=== PATIENT | male | born 1990 | race Caucasian/White ===

== ENCOUNTER 2016-09-13 10:21 | Emergency (ER) | payer MEDICAID ==
[2016-09-13 10:39] VITALS: BP 161/100
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
== END 2016-09-13 16:48 | disposition home or self-care (01) ==
LOC: JP.ED 10:21
DX: F32.9 Major depressive disorder, single episode, unspecified (principal); F41.0 Panic disorder [episodic paroxysmal anxiety]; Z79.899 Other long term (current) drug therapy; Z88.8 Allergy status to other drugs, medicaments and biological substances
CPT/HCPCS: 36415; 80053; 80305; 81001; 85025; 99285; G0480

== ENCOUNTER 2017-09-27 15:20 | Emergency (ER) | payer MEDICAID ==
[2017-09-27 15:37] VITALS: BP 137/87
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
[2017-09-27] MEDS ORDERED: Ketorolac 60 MG/2 ML SDV IM ONE (17:41)
== END 2017-09-27 18:46 | disposition home or self-care (01) ==
LOC: JP.ED 15:20
DX: K60.2 Anal fissure, unspecified (principal); Z88.8 Allergy status to other drugs, medicaments and biological substances; Z79.899 Other long term (current) drug therapy
CPT/HCPCS: 96372; 99283; J1885

== ENCOUNTER 2019-08-24 18:32 | Emergency (ER) | payer MEDICAID ==
[2019-08-24 18:56] VITALS: BP 149/85; PULSE 102
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
[2019-08-24] MEDS ORDERED: LORazepam 0.5 MG Tab PO ONE (22:41)
== END 2019-08-24 23:19 | disposition other institution (70) ==
LOC: JP.ED 18:32
DX: F33.2 Major depressive disorder, recurrent severe without psychotic features (principal); F41.9 Anxiety disorder, unspecified; Z79.899 Other long term (current) drug therapy; Z88.8 Allergy status to other drugs, medicaments and biological substances; Z88.2 Allergy status to sulfonamides
CPT/HCPCS: 36415; 80048; 80305; 80307; 81001; 85027; 99285; A9270

== ENCOUNTER 2020-06-01 13:20 | Emergency (ER) | payer MEDICAID ==
[2020-06-01 13:41] VITALS: BP 148/89; PULSE 108
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
[2020-06-01] MEDS ORDERED: OXcarbazepine 300 MG Tab PO ONE (19:25)
[2020-06-01] MEDS ORDERED: risperiDONE 0.5 MG Tab PO ONE (19:26)
[2020-06-01] MEDS ORDERED: risperiDONE 0.25 MG Tab ONE (19:52)
== END 2020-06-01 20:03 | disposition home or self-care (01) ==
LOC: JP.ED 13:20
DX: F33.2 Major depressive disorder, recurrent severe without psychotic features (principal); Z88.2 Allergy status to sulfonamides; Z88.1 Allergy status to other antibiotic agents; Z88.8 Allergy status to other drugs, medicaments and biological substances; Z79.899 Other long term (current) drug therapy; Z20.822 Contact with and (suspected) exposure to COVID-19
CPT/HCPCS: 36415; 80053; 80305-QW; 80307; 81001; 85025; 99284; A9270-GY; U0002

== ENCOUNTER 2020-11-09 21:36 | Emergency (ER) | payer MEDICAID ==
[2020-11-09 21:41] VITALS: BP 130/85; PULSE 105
[2020-11-09] MEDS ORDERED: Ketorolac 60 MG/2 ML SDV IM ONE (22:02)
[2020-11-09] MEDS ORDERED: LORazepam 2 MG/ML SDV IM ONE (22:02)
[2020-11-09] MEDS ORDERED: Lidocaine 1% with EPINEPHrine 1:100,000 50 ML MDV SUBCUT STA (22:03)
[2020-11-09] MEDS ORDERED: Bacitracin Oint 1 GM U/D Packet TOP ONE (22:03)
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
[2020-11-09] MEDS ORDERED: Diphtheria,Pertussis(Acell),Tetanus Vaccine 0.5 ML Syringe IM ONE (22:16)
[2020-11-09] MEDS ORDERED: Flumazenil 0.1 MG/ML 5 ML MDV IVPUSH STA (23:30)
== END 2020-11-10 00:01 | disposition home or self-care (01) ==
LOC: JP.ED 21:36
DX: S61.213A Laceration without foreign body of left middle finger without damage to nail, initial encounter (principal); S51.011A Laceration without foreign body of right elbow, initial encounter; Z87.891 Personal history of nicotine dependence; Z88.6 Allergy status to analgesic agent; Z88.1 Allergy status to other antibiotic agents; Z88.8 Allergy status to other drugs, medicaments and biological substances; Z23 Encounter for immunization; Y04.0XXA Assault by unarmed brawl or fight, initial encounter
CPT/HCPCS: 12002; 90471; 90715; 96372; 96374; 99283; J1885; J2060; J3490

== ENCOUNTER 2020-11-10 00:37 | Emergency (ER) | payer MEDICAID ==
[2020-11-10] MEDS ORDERED: LORazepam 1 MG Tab PO ONE (01:37)
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
[2020-11-10 03:50] VITALS: BP 154/76; PULSE 100
== END 2020-11-10 08:47 | disposition home or self-care (01) ==
LOC: JP.ED 00:37
DX: F91.1 Conduct disorder, childhood-onset type (principal); Z88.1 Allergy status to other antibiotic agents; Z88.8 Allergy status to other drugs, medicaments and biological substances; Z88.5 Allergy status to narcotic agent
CPT/HCPCS: 99283; 99284; A9270

== ENCOUNTER 2020-12-19 15:19 | Emergency (ER) | payer MEDICAID ==
[2020-12-19] MEDS ORDERED: LORazepam 1 MG Tab PO ONE (15:54)
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
[2020-12-19 17:00] VITALS: BP 110/71; PULSE 123
== END 2020-12-19 17:04 | disposition home or self-care (01) ==
LOC: JP.ED 15:19
DX: F41.1 Generalized anxiety disorder (principal); Z88.1 Allergy status to other antibiotic agents; Z88.5 Allergy status to narcotic agent
CPT/HCPCS: 99283; A9270

== ENCOUNTER 2020-12-20 11:53 | Emergency (ER) | payer MEDICAID ==
[2020-12-20 12:32] VITALS: BP 112/74; PULSE 141
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
== END 2020-12-20 14:11 | disposition home or self-care (01) ==
LOC: JP.ED 11:53
DX: F33.2 Major depressive disorder, recurrent severe without psychotic features (principal); F41.0 Panic disorder [episodic paroxysmal anxiety]; F84.5 Asperger's syndrome; Z88.1 Allergy status to other antibiotic agents; Z88.8 Allergy status to other drugs, medicaments and biological substances
CPT/HCPCS: 99284

== ENCOUNTER 2020-12-21 19:30 | Emergency (ER) | payer MEDICAID ==
[2020-12-21 20:43] VITALS: BP 125/85; PULSE 114
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
== END 2020-12-22 00:49 | disposition home or self-care (01) ==
LOC: JP.ED 19:30
DX: F41.1 Generalized anxiety disorder (principal); F32.9 Major depressive disorder, single episode, unspecified; F84.5 Asperger's syndrome; Z88.8 Allergy status to other drugs, medicaments and biological substances; Z88.2 Allergy status to sulfonamides; Z79.899 Other long term (current) drug therapy
CPT/HCPCS: 99283

== ENCOUNTER 2020-12-22 09:00 | Emergency (ER) | payer MEDICAID ==
[2020-12-22 09:13] VITALS: BP 119/88; PULSE 119
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
== END 2020-12-22 16:16 | disposition home or self-care (01) ==
LOC: JP.ED 09:00
DX: F33.2 Major depressive disorder, recurrent severe without psychotic features (principal); F19.10 Other psychoactive substance abuse, uncomplicated; Z59.0 Homelessness; Z88.2 Allergy status to sulfonamides; Z88.8 Allergy status to other drugs, medicaments and biological substances; Z79.899 Other long term (current) drug therapy
CPT/HCPCS: 36415; 80053; 80305-QW; 80307; 85025; 99284

== ENCOUNTER 2021-04-11 16:37 | Emergency (ER) | payer MEDICAID ==
[2021-04-11] MEDS ORDERED: cloNIDine 0.1 MG Tab PO PRN (18:35)
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
[2021-04-11] MEDS ORDERED: hydrOXYzine HCl 25 MG Tab PO SCH (23:33)
[2021-04-11] MEDS ORDERED: risperiDONE 1 MG Tab PO SCH (23:34)
[2021-04-11] MEDS ORDERED: risperiDONE 1 MG Tab ONE (23:35)
[2021-04-11] MEDS ORDERED: hydrOXYzine HCl 25 MG Tab ONE (23:37)
[2021-04-12] MEDS ORDERED: hydrOXYzine HCl 25 MG Tab PO SCH (06:00)
[2021-04-12] MEDS ORDERED: DULoxetine 30 MG Cap PO SCH (09:00)
[2021-04-12 09:48] VITALS: BP 114/83; PULSE 88
[2021-04-12] MEDS ORDERED: risperiDONE 1 MG Tab PO SCH (21:00)
== END 2021-04-12 10:52 | disposition home or self-care (01) ==
LOC: JP.ED 16:37
DX: F33.2 Major depressive disorder, recurrent severe without psychotic features (principal); F41.9 Anxiety disorder, unspecified; F10.20 Alcohol dependence, uncomplicated; F15.10 Other stimulant abuse, uncomplicated; F84.5 Asperger's syndrome; Y90.0 Blood alcohol level of less than 20 mg/100 ml; Z77.22 Contact with and (suspected) exposure to environmental tobacco smoke (acute) (chronic); Z88.8 Allergy status to other drugs, medicaments and biological substances; Z88.2 Allergy status to sulfonamides; Z79.899 Other long term (current) drug therapy; Z20.822 Contact with and (suspected) exposure to COVID-19
CPT/HCPCS: 36415; 80053; 80305; 80307; 83735; 84439; 85025; 87635; 99284; A9270; U0002

== ENCOUNTER 2023-08-06 14:21 | Emergency (ER) | payer MEDICAID ==
[2023-08-06 16:39] VITALS: BP 145/97; PULSE 74
== END 2023-08-06 17:57 | disposition home or self-care (01) ==
LOC: JP.ED 14:21
DX: F41.9 Anxiety disorder, unspecified (principal); F33.2 Major depressive disorder, recurrent severe without psychotic features; K21.9 Gastro-esophageal reflux disease without esophagitis; Z88.8 Allergy status to other drugs, medicaments and biological substances; Z88.2 Allergy status to sulfonamides; Z86.19 Personal history of other infectious and parasitic diseases; Z87.891 Personal history of nicotine dependence; Z79.899 Other long term (current) drug therapy
CPT/HCPCS: 99283

== ENCOUNTER 2023-08-06 18:18 | Emergency (ER) | payer MEDICAID ==
[2023-08-06 22:46] LABS: AMPHETAMINES SCREEN, URINE NEGATIVE (NEGATIVE); BARBITURATE SCREEN,URINE NEGATIVE (NEGATIVE); BENZODIAZEPINES SCREEN,URINE NEGATIVE (NEGATIVE); METHADONE SCREEN, URINE NEGATIVE (NEGATIVE); METHAMPHETAMINES SCREEN, URINE NEGATIVE (NEGATIVE); OXYCODONE SCREEN,URINE NEGATIVE (NEGATIVE); PROPOXYPHENE SCREEN,URINE NEGATIVE (NEGATIVE); THC SCREEN,URINE 50 NG/ML PRESUMPTIVE POSITIVE (NEGATIVE)
[2023-08-06 23:01] LABS: BASOPHILS PERCENT AUTO 0.2 % (0.1-1.3); EOSINOPHILS ABSOLUTE AUTO 0.06 K/uL (0.00-0.40); EOSINOPHILS PERCENT AUTO 0.6 % (0.0-5.4); HEMOGLOBIN 14.4 g/dL (12.9-16.9); IMMATURE GRAN ABSOLUTE AUTO 0.05 K/uL (0.00-0.23); IMMATURE GRAN PERCENT AUTO 0.5 % (0.0-0.7); LYMPHOCYTES PERCENT AUTO 21.1 % (11.4-47.7); MEAN CORPUSCULAR HEMOGLOBIN 30.4 pg (31.6-35.5); MEAN CORPUSCULAR HGB CONC 35.1 g/dL (31.6-35.5); MEAN CORPUSCULAR VOLUME 86.5 fL (81.4-99.0); MONOCYTES ABSOLUTE AUTO 0.68 K/uL (0.20-0.90); MONOCYTES PERCENT AUTO 7.2 % (3.3-12.6); NEUTROPHILS ABSOLUTE AUTO 6.65 K/uL (1.0-7.6); NEUTROPHILS PERCENT AUTO 70.4 % (40.0-78.1); PLATELET COUNT,PLT 352 K/uL (130-375); RED BLOOD CELL COUNT 4.74 M/uL (4.14-5.76); WHITE BLOOD CELL COUNT,WBC 9.5 K/uL (3.2-11.0)
[2023-08-06 23:02] LABS: BASOPHILS ABSOLUTE AUTO 0.02 K/uL (0.00-0.10)
[2023-08-06 23:22] LABS: A/G RATIO 1.1 (1.2-2.2); ALANINE AMINOTRANSFERASE,ALT 50 U/L (12-78); ALBUMIN 4.2 g/dL (3.4-5.0); ALKALINE PHOSPHATASE 101 U/L (46-116); ANION GAP 12.6 mmol/L (5.0-14.0); ASPARTATE AMNIOTRANSFERASE,AST 22 U/L (15-37); BILIRUBIN TOTAL 0.3 mg/dL (0.2-1.0); BLOOD UREA NITROGEN,BUN 11 mg/dL (7-18); CALCIUM 9.3 mg/dL (8.5-10.1); CARBON DIOXIDE,CO2 25 mmol/L (21-32); CHLORIDE,CL 103 mmol/L (100-108); CREATININE 1.1 mg/dL (0.8-1.3); EST CRCL DRUG DOSING (CG) 109.96 mL/min; ESTIMATED GFR 92 mL/min (>60); GLUCOSE RANDOM 93 mg/dL (74-106); POTASSIUM,K 3.7 mmol/L (3.6-5.2); PROTEIN TOTAL,TP 8.1 g/dL (6.4-8.2); SODIUM,NA 141 mmol/L (140-148)
[2023-08-06] MEDS: QUEtiapine 25 MG Tab PO ONE (23:51)
[2023-08-06] MEDS: LORazepam 1 MG Tab PO ONE (23:51)
[2023-08-06] MEDS: Gabapentin 100 MG Cap PO ONE (23:51)
[2023-08-07 06:00] VITALS: BP 126/78; PULSE 70
== END 2023-08-07 07:40 ==
LOC: JP.ED 18:18
DX: F43.23 Adjustment disorder with mixed anxiety and depressed mood (principal); F41.9 Anxiety disorder, unspecified; F33.2 Major depressive disorder, recurrent severe without psychotic features; K21.9 Gastro-esophageal reflux disease without esophagitis; Z88.2 Allergy status to sulfonamides; Z88.8 Allergy status to other drugs, medicaments and biological substances; Z79.899 Other long term (current) drug therapy; Z87.891 Personal history of nicotine dependence; Z86.19 Personal history of other infectious and parasitic diseases
CPT/HCPCS: 36415; 80053; 80305-QW; 80307; 85025; 99283; 99284; 99285; A9270-GY; U0002

== ENCOUNTER 2023-10-24 23:30 | Emergency (ER) | payer MEDICAID ==
[2023-10-24 23:58] VITALS: PULSE 128
[2023-10-25 00:28] LABS: BASOPHILS PERCENT AUTO 0.3 % (0.1-1.3); EOSINOPHILS ABSOLUTE AUTO 0.04 K/uL (0.00-0.40); EOSINOPHILS PERCENT AUTO 0.5 % (0.0-5.4); HEMATOCRIT 40.5 % (38.4-49.7); HEMOGLOBIN 14.5 g/dL (12.9-16.9); IMMATURE GRAN PERCENT AUTO 0.3 % (0.0-0.7); MEAN CORPUSCULAR HEMOGLOBIN 30.4 pg (31.6-35.5); MEAN CORPUSCULAR HGB CONC 35.8 g/dL (31.6-35.5); MEAN CORPUSCULAR VOLUME 84.9 fL (81.4-99.0); MONOCYTES ABSOLUTE AUTO 0.83 K/uL (0.20-0.90); MONOCYTES PERCENT AUTO 11.2 % (3.3-12.6); NEUTROPHILS ABSOLUTE AUTO 4.22 K/uL (1.0-7.6); NEUTROPHILS PERCENT AUTO 56.7 % (40.0-78.1); PLATELET COUNT,PLT 324 K/uL (130-375); RED BLOOD CELL COUNT 4.77 M/uL (4.14-5.76); WHITE BLOOD CELL COUNT,WBC 7.4 K/uL (3.2-11.0)
[2023-10-25 00:32] LABS: BASOPHILS ABSOLUTE AUTO 0.02 K/uL (0.00-0.10); IMMATURE GRAN ABSOLUTE AUTO 0.02 K/uL (0.00-0.23)
[2023-10-25 00:44] LABS: C-REACTIVE PROTEIN 0.77 mg/dL (<0.50); CALCIUM 9.2 mg/dL (8.5-10.1); CREATININE 1.2 mg/dL (0.8-1.3); EST CRCL DRUG DOSING (CG) 100.8 mL/min; POTASSIUM,K 3.5 mmol/L (3.6-5.2)
[2023-10-25 00:45] LABS: ANION GAP 13.5 mmol/L (5.0-14.0)
[2023-10-25 00:46] VITALS: BP 117/81
[2023-10-25] MEDS: Cetirizine 10 MG Tab PO ONE (01:05)
== END 2023-10-25 01:06 | disposition home or self-care (01) ==
LOC: JP.ED 23:30
DX: J30.2 Other seasonal allergic rhinitis (principal); Z88.2 Allergy status to sulfonamides; Z88.8 Allergy status to other drugs, medicaments and biological substances; Z79.899 Other long term (current) drug therapy; Z87.891 Personal history of nicotine dependence
CPT/HCPCS: 36415; 80048; 85025; 86140; 99284; A9270

== ENCOUNTER 2023-10-25 15:42 | Emergency (ER) | payer MEDICAID ==
[2023-10-25 16:53] LABS: AMPHETAMINES SCREEN, URINE NEGATIVE (NEGATIVE); BARBITURATE SCREEN,URINE NEGATIVE (NEGATIVE); BENZODIAZEPINES SCREEN,URINE NEGATIVE (NEGATIVE); METHADONE SCREEN, URINE NEGATIVE (NEGATIVE); METHAMPHETAMINES SCREEN, URINE NEGATIVE (NEGATIVE); OXYCODONE SCREEN,URINE NEGATIVE (NEGATIVE); PROPOXYPHENE SCREEN,URINE NEGATIVE (NEGATIVE); THC SCREEN,URINE 50 NG/ML PRESUMPTIVE POSITIVE (NEGATIVE)
[2023-10-25] MEDS: hydrOXYzine HCl 10 MG Tab PO ONE (17:18)
[2023-10-25] MEDS: Loperamide 2 MG Cap PO ONE (17:58)
[2023-10-25 18:20] LABS: BASOPHILS ABSOLUTE AUTO 0.02 K/uL (0.00-0.10); BASOPHILS PERCENT AUTO 0.3 % (0.1-1.3); EOSINOPHILS ABSOLUTE AUTO 0.02 K/uL (0.00-0.40); EOSINOPHILS PERCENT AUTO 0.3 % (0.0-5.4); HEMATOCRIT 40.2 % (38.4-49.7); HEMOGLOBIN 14.5 g/dL (12.9-16.9); IMMATURE GRAN ABSOLUTE AUTO 0.02 K/uL (0.00-0.23); IMMATURE GRAN PERCENT AUTO 0.3 % (0.0-0.7); LYMPHOCYTES PERCENT AUTO 27.1 % (11.4-47.7); MEAN CORPUSCULAR HEMOGLOBIN 30.8 pg (31.6-35.5); MEAN CORPUSCULAR HGB CONC 36.1 g/dL (31.6-35.5); MEAN CORPUSCULAR VOLUME 85.4 fL (81.4-99.0); MONOCYTES ABSOLUTE AUTO 0.56 K/uL (0.20-0.90); MONOCYTES PERCENT AUTO 8.4 % (3.3-12.6); NEUTROPHILS ABSOLUTE AUTO 4.23 K/uL (1.0-7.6); NEUTROPHILS PERCENT AUTO 63.6 % (40.0-78.1); PLATELET COUNT,PLT 295 K/uL (130-375); RED BLOOD CELL COUNT 4.71 M/uL (4.14-5.76); WHITE BLOOD CELL COUNT,WBC 6.7 K/uL (3.2-11.0)
[2023-10-25 18:30] VITALS: BP 124/90; PULSE 112
[2023-10-25 18:32] LABS: APPEARANCE,URINE CLEAR (CLEAR); BILIRUBIN,URINE NEGATIVE (NEGATIVE); COLOR,URINE YELLOW (YELLOW); GLUCOSE,URINE NEGATIVE (NEGATIVE); KETONES,URINE NEGATIVE (NEGATIVE); LEUKOCYTE ESTERASE,URINE NEGATIVE (NEGATIVE); NITRITE,URINE NEGATIVE (NEGATIVE); OCCULT BLOOD,URINE TRACE-INTACT (NEGATIVE); PROTEIN,URINE NEGATIVE (NEGATIVE); UROBILINOGEN,URINE 0.2 EU/dL (0.2-1.0)
[2023-10-25 18:36] LABS: AMORPHOUS SEDIMENT,URINE NOT SEEN; BACTERIA,URINE RARE; EPITHELIAL CELLS,URINE NOT SEEN; MUCUS,URINE NOT SEEN; RBC,URINE 0-5 (0-5); WBC,URINE 0-5 (0-5)
[2023-10-25 18:42] LABS: A/G RATIO 1.1 (1.2-2.2); ALANINE AMINOTRANSFERASE,ALT 30 U/L (12-78); ALKALINE PHOSPHATASE 93 U/L (46-116); ANION GAP 12.6 mmol/L (5.0-14.0); ASPARTATE AMNIOTRANSFERASE,AST 16 U/L (15-37); BILIRUBIN TOTAL 0.4 mg/dL (0.2-1.0); BLOOD UREA NITROGEN,BUN 10 mg/dL (7-18); CALCIUM 9.2 mg/dL (8.5-10.1); CARBON DIOXIDE,CO2 24 mmol/L (21-32); CHLORIDE,CL 103 mmol/L (100-108); CREATININE 1.3 mg/dL (0.8-1.3); EST CRCL DRUG DOSING (CG) 93.05 mL/min; ESTIMATED GFR 75 mL/min (>60); GLUCOSE RANDOM 111 mg/dL (74-106); POTASSIUM,K 3.7 mmol/L (3.6-5.2); PROTEIN TOTAL,TP 7.8 g/dL (6.4-8.2); SODIUM,NA 140 mmol/L (140-148)
== END 2023-10-25 22:09 | disposition other institution (70) ==
LOC: JP.ED 15:42
DX: F32.9 Major depressive disorder, single episode, unspecified (principal); F41.9 Anxiety disorder, unspecified; F10.20 Alcohol dependence, uncomplicated; Z88.8 Allergy status to other drugs, medicaments and biological substances; Z88.2 Allergy status to sulfonamides; Z79.899 Other long term (current) drug therapy
CPT/HCPCS: 36415; 80053; 80143; 80179; 80305; 80307; 81001; 85025; 87635; 99285; A9270; U0002